=== PATIENT | female | born 1985 | race Caucasian/White ===

== ENCOUNTER 2016-12-04 | Emergency (ER) | payer MEDICAID, OTHER ==
[2016-12-04 00:15] LABS: MEAN CORPUSCULAR HGB CONC 29.4 % (32.0-36.0)
--- NOTE | 2016-12-04 00:18 | PD ---
HPI Chief Complaint: psychiatric evaluation Time Seen by Provider: 00:14 Travel History International Travel<30 days: No Contact w/Intl Traveler<30days: No History of Present Illness HPI 31 year old female presents to the emergency department under [place] Act for psychiatric evaluation. According to the Dougherty act, the patient made suicidal statements saying she wanted to kill herself. The patient denies this. The patient states that she took her normal medications to sleep which are Xanax, trazodone, Ambien. She states she took her normal dosage it did not take anymore. She states she went to sleep in the next thing she knew everybody was waking her up. The patient states that she believes her soon-to-be ex- might have called stating that she was making suicidal comments, but denies stating that she wanted to kill herself. She denies any suicidal or homicidal ideations to me. She drinks alcohol occasionally. She denies any tobacco or illicit drug use. She has no medical complaints this time. She does state that she has history of depression and anxiety. [facility] Social History Alcohol Use: Yes Tobacco Use: No Substance Use: No Allergies-Medications (Allergen,Severity, Reaction): Coded Allergies: Azithromycin (Verified Allergy, Severe, Z PACK, 07/25/05) Codeine (Unverified Allergy, Mild, 12/04/16) Uncoded Allergies: N (Allergy, Unknown, 03/18/03) NKA (Allergy, Unknown, 03/18/03) Reported Meds & Prescriptions Reported Meds & Active Scripts Active Reported Ambien (Zolpidem Tartrate) 5 Mg Tab 5 Mg PO HS PRN Prozac (Fluoxetine HCl) 40 Mg Cap 40 Mg PO DAILY Risperidone 2 Mg Tab 2 Mg PO HS Trazodone (Trazodone HCl) 50 Mg Tab 50 Mg PO HS Xanax (Alprazolam) 1 Mg Tab 1 Mg PO Q8H PRN Review of Systems Except as stated in HPI: all other systems reviewed are Neg Physical Exam Narrative GENERAL: Well-nourished, well-developed female patient, ambulatory with a steady gait. Afebrile. SKIN: Focused skin assessment warm/dry. HEAD: Normocephalic. Atraumatic. EYES: No scleral icterus. No injection or drainage. NECK: Supple, trachea midline. No JVD or lymphadenopathy. CARDIOVASCULAR: Regular rate and rhythm without murmurs, gallops, or rubs. RESPIRATORY: Breath sounds equal bilaterally. No accessory muscle use. Lungs sounds are clear to auscultation. GASTROINTESTINAL: Abdomen soft, non-tender, nondistended. MUSCULOSKELETAL: No cyanosis, or edema. PSYCHIATRIC: No delusional thought processes. No hallucinations. Data Data Last Documented VS Vital Signs Date Time Temp Pulse Resp B/P Pulse Ox O2 Delivery O2 Flow Rate FiO2 12/04/16 00:20 98.2 75 16 127/77 99 Room Air Orders Complete Blood Count With Diff (12/04/16 00:13) Comprehensive Metabolic Panel (12/04/16 00:13) Ed Urine Pregnancytest Poc (12/04/16 00:13) Psych Screen (12/04/16 00:13) Drug Screen, Random Urine (12/04/16 00:13) Alcohol (Ethanol) (12/04/16 00:13) Salicylates (Aspirin) (12/04/16 00:13) Tylenol (Acetaminophen) (12/04/16 00:13) Labs Laboratory Tests Test 12/04/16 12/04/16 00:03 00:20 Urine Opiates Screen NEG Urine Barbiturates Screen NEG Urine Amphetamines Screen NEG Urine Benzodiazepines Screen POS Urine Cocaine Screen NEG Urine Cannabinoids Screen NEG White Blood Count 5.0 TH/MM3 Red Blood Count 3.90 MIL/MM3 Hemoglobin 8.0 GM/DL Hematocrit 27.2 % Mean Corpuscular Volume 69.7 FL Mean Corpuscular Hemoglobin 20.5 PG Mean Corpuscular Hemoglobin 29.4 % Concent Red Cell Distribution Width 18.2 % Platelet Count 241 TH/MM3 Mean Platelet Volume 7.8 FL Neutrophils (%) (Auto) 48.0 % Lymphocytes (%) (Auto) 37.8 % Monocytes (%) (Auto) 10.8 % Eosinophils (%) (Auto) 2.3 % Basophils (%) (Auto) 1.1 % Neutrophils # (Auto) 2.4 TH/MM3 Lymphocytes # (Auto) 1.9 TH/MM3 Monocytes # (Auto) 0.5 TH/MM3 Eosinophils # (Auto) 0.1 TH/MM3 Basophils # (Auto) 0.1 TH/MM3 CBC Comment DIFF FINAL Differential Comment Sodium Level 141 MEQ/L Potassium Level 4.1 MEQ/L Chloride Level 104 MEQ/L Carbon Dioxide Level 28.8 MEQ/L Anion Gap 8 MEQ/L Blood Urea Nitrogen 9 MG/DL Creatinine 0.54 MG/DL Estimat Glomerular Filtration 132 ML/MIN Rate Random Glucose 70 MG/DL Calcium Level 8.1 MG/DL Total Bilirubin 0.3 MG/DL Aspartate Amino Transf 18 U/L (AST/SGOT) Alanine Aminotransferase 19 U/L (ALT/SGPT) Alkaline Phosphatase 65 U/L Total Protein 7.5 GM/DL Albumin 3.5 GM/DL Salicylates Level 2.2 MG/DL Acetaminophen Level LESS THAN 2.0 MCG/ML Ethyl Alcohol Level 3 MG/DL MDM Medical Decision Making Medical Screen Exam Complete: Yes Emergency Medical Condition: Yes Medical Record Reviewed: Yes Differential Diagnosis Depression versus anxiety versus suicidal ideation Narrative Course 31-year-old female presents to the emergency Department under [place] act by local police stating that she was making suicidal statements. However, the patient denies this. She denies any thoughts of hurting herself or anybody else. CBC, CMP, alcohol level, urine drug screen, salicylate level, acetaminophen level, urine test are ordered and pending. CBC shows anemia with hemoglobin 8.0, hematocrit 27.2. CMP shows no acute abnormality. Alcohol level is 3. UDS is positive for benzodiazepines. Tylenol level is less than 2.0. Salicylate level is 2.2. UPT is negative. Patient reports history of anemia. She denies any source of bleeding. Patient is asymptomatic. I instructed her follow up with her primary care physician regarding her anemia. She verbalizes agreement. Patient is medical cleared for psychiatric screening and disposition. Mental health screening discussed with the patient. Psychiatric screen ordered. Diagnosis Primary Impression: Depression Qualified Code: F32.9 - Depression, unspecified depression type Additional Impression: Anemia Qualified Code: D64.9 - Anemia, unspecified type Additional Instructions: According to the lab work, your anemic. Please follow up with your primary care physician regarding this. Patient is medically cleared for psychiatric screening and disposition. Condition: Stable Nancie Baez GENA December 04, 2016 00:18
[2016-12-04 00:20] VITALS: BP 127/77; PULSE 75; RESP 16; TEMP 98.2; O2SAT 99
[2016-12-04] MEDS ORDERED: AMBI5TAB PO (00:30)
[2016-12-04] MEDS ORDERED: RISP2TAB2 PO (00:30)
[2016-12-04] MEDS ORDERED: XANA1TAB2 PO (00:30)
[2016-12-04] MEDS ORDERED: PROZ40CA PO (00:30)
[2016-12-04] MEDS ORDERED: TRAZ50TA12 PO (00:30)
[2016-12-04 01:03] LABS: AUTOMATED NEUTROPHIL # 2.4 TH/MM3 (1.8-7.7); BASOPHIL # 0.1 TH/MM3 (0-0.2); BASOPHIL % 1.1 % (0.0-2.0); EOSINOPHIL # 0.1 TH/MM3 (0-0.4); EOSINOPHIL % 2.3 % (0.0-4.0); HEMATOCRIT 27.2 % (35.0-46.0); HEMO FLAGS DIFF FINAL; LYMPH % 37.8 % (9.0-44.0); LYMPHOCYTE # 1.9 TH/MM3 (1.0-4.8); MEAN CELL VOLUME 69.7 FL (80.0-100.0); MEAN CORPUSCULAR HEMOGLOBIN 20.5 PG (27.0-34.0); MONO % 10.8 % (0.0-8.0); PLATELET COUNT 241 TH/MM3 (150-450); RED CELL DISTRIBUTION WIDTH 18.2 % (11.6-17.2)
[2016-12-04 01:06] LABS: ACETAMINOPHEN LESS THAN 2.0 MCG/ML (10.0-30.0); ALT (GPT) 19 U/L (10-53); ANION GAP 8 MEQ/L (5-15); AST (GOT) 18 U/L (15-37); BICARBONATE 28.8 MEQ/L (21.0-32.0); BLOOD UREA NITROGEN 9 MG/DL (7-18); CHLORIDE 104 MEQ/L (98-107); GLOMERULAR FILTRATION RATE 132 ML/MIN (>89); POTASSIUM 4.1 MEQ/L (3.5-5.1); SODIUM (NA) 141 MEQ/L (136-145)
[2016-12-04 01:06] LABS: AMPHETAMINE, URINE NEG (NEG); BARBITURATES, URINE NEG (NEG); COCAINE, URINE NEG (NEG)
[2016-12-04 01:08] LABS: ALKALINE PHOSPHATASE 65 U/L (45-117); TOTAL BILIRUBIN ADULT 0.3 MG/DL (0.2-1.0)
[2016-12-04 01:51] VITALS: BP 95/51; PULSE 75; RESP 18; O2SAT 99
[2016-12-04 06:16] VITALS: BP 106/57; PULSE 81; RESP 18; O2SAT 100
--- NOTE | 2016-12-04 17:18 | PD ---
History of Present Illness Chief Complaint: Psychiatric Symptoms Time Seen by Provider: 10:45 Travel History International Travel<30 Days: No Contact w/Intl Traveler<30days: No Known affected area: No Legal Status Legal Status: Dougherty Act Doug[place] Act Signed By: Yue Kilpatrick History of Present Illness: History of Present Illness HPI 31 year old female with history of depression and anxiety presents to the emergency department under Dougherty Act initiated by [place]. According to the Dougherty act, the patient made suicidal statements saying she wanted to kill herself. She reports that she had taken her nighttime medication and went to bed. when her daughter tried to wake her up she was unable to do so and called her grandmother who became concerned she had taken extra medication. The patietn adamantly denies that she took any medication as a suicide attempt and denies any suicidal or homicidal ideation, intent or plan. EMR is reviewed. no prior contact with [facility] psychiatry dept. Current toxicology is positive for prescribed benzos. The patient is seen in J pod. She has not presented any behavioral concerns and no suicidality. She is awake, alert and oriented. Speech is clear and logical. There si no nish or hypomania. No psychosis. No significant depression. There is no acute psychiatric symptoms and she continues to deny any suicidality. She is requesting discharge and plans on continuing care with Dr. Montanez. [facility] Past Medical History Anemia: Yes (2 BLOOD TRANSFUSIONS IN JANUARY 2016) Anxiety: Yes Depression: Yes Immunizations Current: Yes Tetanus Vaccination: Unknown Influenza Vaccination: No ?: Not LMP: 11/20/16 : 2 Para: 2 Past Surgical History Surgical History: No Previous Surgery Section: Yes (X2) Psychiatric History Psychiatric History Hx Psychiatric Treatment: HX: DEPRESSION, ANXIETY PER PATIENT No previous hx of suicide attempts. History of Inpatient Treatment: No Guns or firearms in home: No Social History female who is in process of getting . lives with her and her 2 daughters. 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 Hx Alcohol Use: Yes Hx Tobacco Use: No Hx Substance Use: Yes (MARIJUANA) Substance Use Type: Marijuana Hx of Substance Use Treatment: No Allergies-Medications (Allergen,Severity, Reaction): Coded Allergies: Azithromycin (Verified Allergy, Severe, Z PACK, 07/25/05) Codeine (Unverified Allergy, Mild, 12/04/16) Uncoded Allergies: N (Allergy, Unknown, 03/18/03) NKA (Allergy, Unknown, 03/18/03) Reported Meds & Prescriptions Reported Meds & Active Scripts Active Reported Ambien (Zolpidem Tartrate) 5 Mg Tab 5 Mg PO HS PRN Prozac (Fluoxetine HCl) 40 Mg Cap 40 Mg PO DAILY Risperidone 2 Mg Tab 2 Mg PO HS Trazodone (Trazodone HCl) 50 Mg Tab 50 Mg PO HS Xanax (Alprazolam) 1 Mg Tab 1 Mg PO Q8H PRN Review of Systems Except as stated in HPI: all other systems reviewed are Neg Exam Alert: Yes [place]: Person (ox4) Mood: Anxious (about being here), Calm Affect: Appropriate Speech: Clear, Logical Eye Contact: Normal Memory Intact: Comment (No impairment) Hallucinations: Other (negative) Delusions: No Suicidal: Ideation (deneis any) Homicidal: Ideation (denies any) Insight/Judgement Fair. Not impaired. MDM Medical Decision Making Medical Record Reviewed: Yes Assessment/Plan 31 year old female with history of depression who is under a BA after her family became concerned that she had taken extra medication as s suicide attempt. The patient denies that she took any extra medication and that she only took her scheduled nighttime medication. She does not present any acute psychiatric symptomatology and is future oriented. She is requesting discharge and does not meet criteria for BA at this time. She will follow up with dr. Montanez. [place]. Orders Complete Blood Count With Diff (12/04/16 00:13) Comprehensive Metabolic Panel (12/04/16 00:13) Ed Urine Pregnancytest Poc (12/04/16 00:13) Psych Screen (12/04/16 00:13) Drug Screen, Random Urine (12/04/16 00:13) Alcohol (Ethanol) (12/04/16 00:13) Salicylates (Aspirin) (12/04/16 00:13) Tylenol (Acetaminophen) (12/04/16 00:13) Diet Regular Basic (12/04/16 Breakfast) Results Vital Signs Date Time Temp Pulse Resp B/P Pulse Ox O2 Delivery O2 Flow Rate FiO2 12/04/16 06:16 81 18 106/57 100 Room Air 12/04/16 01:51 75 18 95/51 99 Room Air 12/04/16 00:20 98.2 75 16 127/77 99 Room Air Laboratory Tests Test 12/04/16 12/04/16 00:03 00:20 Urine Opiates Screen NEG Urine Barbiturates Screen NEG Urine Amphetamines Screen NEG Urine Benzodiazepines Screen POS Urine Cocaine Screen NEG Urine Cannabinoids Screen NEG White Blood Count 5.0 Red Blood Count 3.90 Hemoglobin 8.0 Hematocrit 27.2 Mean Corpuscular Volume 69.7 Mean Corpuscular Hemoglobin 20.5 Mean Corpuscular Hemoglobin 29.4 Concent Red Cell Distribution Width 18.2 Platelet Count 241 Mean Platelet Volume 7.8 Neutrophils (%) (Auto) 48.0 Lymphocytes (%) (Auto) 37.8 Monocytes (%) (Auto) 10.8 Eosinophils (%) (Auto) 2.3 Basophils (%) (Auto) 1.1 Neutrophils # (Auto) 2.4 Lymphocytes # (Auto) 1.9 Monocytes # (Auto) 0.5 Eosinophils # (Auto) 0.1 Basophils # (Auto) 0.1 CBC Comment DIFF FINAL Differential Comment Sodium Level 141 Potassium Level 4.1 Chloride Level 104 Carbon Dioxide Level 28.8 Anion Gap 8 Blood Urea Nitrogen 9 Creatinine 0.54 Estimat Glomerular Filtration 132 Rate Random Glucose 70 Calcium Level 8.1 Total Bilirubin 0.3 Aspartate Amino Transf 18 (AST/SGOT) Alanine Aminotransferase 19 (ALT/SGPT) Alkaline Phosphatase 65 Total Protein 7.5 Albumin 3.5 Salicylates Level 2.2 Acetaminophen Level LESS THAN 2.0 Ethyl Alcohol Level 3 Diagnosis Primary Impression: Depression Additional Impression: Anemia Psychiatrically Cleared: Yes Referrals: [facility] (Out patient) call for appointment Departure Forms: Tests/Procedures Patient Instructions: General Instructions, Stress (ED) Additional Instructions: According to the lab work, your anemic. Please follow up with your primary care physician regarding this. Patient is medically cleared for psychiatric screening and disposition. Med/ Other Pt Specific Info: No Change to Meds Disposition: 01 DISCHARGE HOME Condition: Stable Problem Qualifiers Primary Impression: Depression Qualified Code: F33.0 - Mild episode of recurrent major depressive disorder Additional Impression: Anemia Qualified Code: D64.9 - Anemia, unspecified type Kayla Doan [facility] December 04, 2016 17:18
== END 2016-12-04 12:41 | disposition home or self-care (01) ==
LOC: NEPD → NEPJ 12:41
DX: F32.9 Major depressive disorder, single episode, unspecified (principal); F33.0 Major depressive disorder, recurrent, mild; D64.9 Anemia, unspecified; Z86.59 Personal history of other mental and behavioral disorders
CPT/HCPCS: 80053; 80307; 84703; 85025; 99284